=== PATIENT | male | born 1955 | race Caucasian/White ===

== ENCOUNTER 2017-06-15 13:56 | Emergency (ER) | payer MEDICAID, OTHER ==
[~2017-06-15] VITALS: Ht 175.3 cm; Wt 65.0 kg
[~2017-06-15 13:56] MED LIST: LORT5TAB PO; Z.0.NO CURRENT MEDS
[2017-06-15 13:59] VITALS: BP 240/114; PULSE 79; RESP 16; TEMP 97.9; O2SAT 97
--- NOTE | 2017-06-15 15:24 | PD ---
HPI Chief Complaint: Injury Time Seen by Provider: 15:20 Travel History International Travel<30 days: No Contact w/Intl Traveler<30days: No Traveled to known affect area: No History of Present Illness HPI PATIENT HAS NO COMPLAINT OTHER THAN PFSH Past Medical History Blood Disorders: No Cancer: Yes (bowel) Cardiac Catheterization: Yes (2001) Cardiovascular Problems: Yes High Cholesterol: No Chest Pain: Yes Cerebrovascular Accident: Yes Coronary Artery Disease: Yes Diminished Hearing: No Endocrine: No Genitourinary: No Headaches: Yes Hypertension: Yes Immune Disorder: No Musculoskeletal: No Neurologic: Yes Psychiatric: No Reproductive: No Respiratory: No Migraines: No Myocardial Infarction: Yes (5 YEARS AGO - CARDIAC STENTS) Seizures: No Sleep Apnea: No Past Surgical History Body Medical Devices: cardaic stents Cardiac Surgery: Yes (stents ) Coronary Stent: Yes Social History Alcohol Use: Yes (daily ellie beam) Tobacco Use: Yes (1 ppd) Substance Use: No (unknown) Allergies-Medications (Allergen,Severity, Reaction): Coded Allergies: penicillin G (Unverified Allergy, Severe, swelling, 06/15/17) Reported Meds & Prescriptions Reported Meds & Active Scripts Active Reported Lortab 5/500 (Acetaminophen/Hydrocodone Bitart) 5 Mg/500 Mg Tab 1-2 Tab PO Q6HPRN FOR PAIN No Current Meds (Miscellaneous Medication) Misc Data Data Last Documented VS Vital Signs Date Time Temp Pulse Resp B/P (MAP) Pulse Ox O2 Delivery O2 Flow Rate FiO2 06/15/17 13:59 97.9 79 16 240/114 (156) 97 Orders Orders Clonidine (Catapres) (06/15/17 15:30) Jean Carlos Gonzalez MD Jun 15, 2017 15:24
[2017-06-15] MEDS ORDERED: cloNIDine HCL 0.1 MG TAB PO ONE (15:30)
[2017-06-15] MEDS ORDERED: BISO10TA2 PO (15:36)
--- NOTE | 2017-06-15 15:38 | PD ---
HPI Chief Complaint: Injury Time Seen by Provider: 15:27 Travel History International Travel<30 days: No Contact w/Intl Traveler<30days: No Traveled to known affect area: No History of Present Illness HPI 61-year-old male with history of hypertension presents for evaluation of left hand pain. He reports that 5 days ago he was trying to fix his garage door when the garage door hit him and he fell, hitting his left hand against the ground. He is complaining of pain and abrasion to the dorsal left hand and dorsal left fourth finger. Pain is an aching pain which is constant, worse with movement. Pain has persisted which prompted evaluation today. He has no other complaints at this time. PFSH Past Medical History Blood Disorders: No Cancer: Yes (bowel) Cardiac Catheterization: Yes (2001) Cardiovascular Problems: Yes High Cholesterol: No Chest Pain: Yes Cerebrovascular Accident: Yes Coronary Artery Disease: Yes Diminished Hearing: No Endocrine: No Genitourinary: No Headaches: Yes Hypertension: Yes Immune Disorder: No Musculoskeletal: No Neurologic: Yes Psychiatric: No Reproductive: No Respiratory: No Migraines: No Myocardial Infarction: Yes (5 YEARS AGO - CARDIAC STENTS) Seizures: No Sleep Apnea: No Past Surgical History Body Medical Devices: cardaic stents Cardiac Surgery: Yes (stents ) Coronary Stent: Yes Social History Alcohol Use: Yes (daily ellie beam) Tobacco Use: Yes (1 ppd) Substance Use: No (unknown) Allergies-Medications (Allergen,Severity, Reaction): Coded Allergies: penicillin G (Verified Allergy, Severe, swelling, 06/15/17) Reported Meds & Prescriptions Reported Meds & Active Scripts Active Reported Bisoprolol-Hydrochlorothiazide 10-6.25 Mg Tab 1 Tab PO DAILY Review of Systems Except as stated in HPI: all other systems reviewed are Neg Physical Exam Narrative GENERAL: Well-nourished male in no acute distress. Hypertensive in triage. SKIN: Warm and dry. Abrasions to the dorsal left hand and left fourth finger. HEAD: Atraumatic. Normocephalic. EYES: Pupils equal and round. No scleral icterus. No injection or drainage. ENT: No nasal bleeding or discharge. Mucous membranes pink and moist. NECK: Trachea midline. No JVD. CARDIOVASCULAR: Regular rate and rhythm. No murmur appreciated. RESPIRATORY: No accessory muscle use. Clear to auscultation. Breath sounds equal bilaterally. MUSCULOSKELETAL: Skin as noted above. Tender to palpation left fourth finger, pain with range of motion left fourth finger. No obvious bony deformities. NEUROLOGICAL: Awake and alert. No obvious cranial nerve deficits. Motor grossly within normal limits. Normal speech. Data Data Last Documented VS Vital Signs Date Time Temp Pulse Resp B/P (MAP) Pulse Ox O2 Delivery O2 Flow Rate FiO2 06/15/17 16:41 69 18 183/94 (123) 97 Room Air 06/15/17 13:59 97.9 Orders Orders Clonidine (Catapres) (06/15/17 15:30) Hand, Complete (Acl8csv) (06/15/17 ) Clonidine (Catapres) (06/15/17 15:45) Wound Care (06/15/17 17:11) [facility] Medical Decision Making Medical Screen Exam Complete: Yes Emergency Medical Condition: Yes Medical Record Reviewed: Yes Differential Diagnosis Abrasion, contusion, fracture Narrative Course X-ray imaging of the left hand will be obtained. He reports that his last tetanus vaccination was within one year. Local wound care provided. He was noted to be markedly hypertensive in triage. He reports that he is currently prescribed bisoprolol-HCTZ 10-6.25mg daily and he has been compliant with his medication. He reports that typically his blood pressure runs approximately 140s systolic although he does not check it very regularly. Primary care physician is Dr. Conti. The patient will be given a dose of clonidine and his blood pressure will be monitored closely. X-ray imaging reveals no acute abnormalities. The patient's blood pressure properly improved after the administration of clonidine. At this point in time the plan is to discharge the patient with close follow-up with his primary care physician, outpatient monitoring of blood pressure. Diagnosis Primary Impression: Hypertension Qualified Codes: I10 - Essential (primary) hypertension Additional Impression: Abrasion of left hand Qualified Codes: S60.512A - Abrasion of left hand, initial encounter Additional Instructions: Wash the wounds daily with soap and water and apply antibiotic cream and clean bandages. Take Tylenol or Motrin for pain. Monitor blood pressure and a regular basis, keep a journal, follow-up with primary care physician. Med/Other Pt SpecificInfo: Wound Care Disposition: 01 DISCHARGE HOME Condition: Stable Elvin Garber Jun 15, 2017 15:38
[2017-06-15 15:39] VITALS: BP 200/102; PULSE 70; RESP 18; O2SAT 98
[2017-06-15] MEDS ORDERED: cloNIDine HCL 0.2 MG TAB PO ONE (15:45)
--- NOTE | 2017-06-15 16:22 | RADRPT ---
EXAM DATE/TIME: 06/15/2017 15:49 [facility] COMPARISON: No previous studies available for comparison. INDICATIONS : Pain from falling. MEDICAL HISTORY : None. SURGICAL HISTORY : None. ENCOUNTER: Initial ACUITY: 1 day PAIN SCORE: 5/10 LOCATION: Left hand, posterior fourth digit. FINDINGS: Three view examination of the left hand demonstrates no soft tissue swelling, dislocation, or fractur e. The carpal bones appear intact. The interphalangeal and metacarpophalangeal joints are intact. Bony mineralization is normal. CONCLUSION: Unremarkable examination of the left hand. Jose Aguilar MD on June 15, 2017 at 16:19 Board Certified Radiologist. This report was verified electronically.
[2017-06-15 16:41] VITALS: BP 183/94; PULSE 69; RESP 18; O2SAT 97
[2017-06-15 17:15] VITALS: BP 178/86; TEMP 97.8
== END 2017-06-15 17:15 | disposition home or self-care (01) ==
LOC: NEPE 13:56
DX: I10 Essential (primary) hypertension (principal); S60.512A Abrasion of left hand, initial encounter; F17.200 Nicotine dependence, unspecified, uncomplicated; W18.09XA Striking against other object with subsequent fall, initial encounter; Y93.89 Activity, other specified; Y92.008 Other place in unspecified non-institutional (private) residence as the place of occurrence of the external cause
CPT/HCPCS: 73130; 99283